=== PATIENT | female | born 1940 | race Two or more races ===

== ENCOUNTER 2022-03-12 12:03 | Observation (INO) | payer MEDICARE, OTHER ==
[~2022-03-12] VITALS: Ht 157.5 cm; Wt 55.7 kg
[2022-03-12 13:58] LABS: Basophils # (auto) 0 10 ^3/uL (0-0.2); Basophils % (auto) 0.4 % (0.0-2.0); Eosinophils # (auto) 0.1 10 ^3/uL (0-0.8); Eosinophils % (auto) 0.7 % (0.0-7.0); Hematocrit 38.7 % (36.0-46.0); Lymphocytes # (auto) 1.4 10 ^3/uL (0.4-5.4); Lymphocytes % (auto) 19.5 % (10.0-50.0); Mean Corpuscular Hemoglobin 30.3 pg (28.0-32.0); Mean Corpuscular Hgb Conc. 33.5 g/dL (32.0-36.0); Mean Corpuscular Volume 90.4 fL (80.0-100.0); Monocytes # (auto) 0.5 10 ^3/uL (0-1.3); Monocytes % (auto) 7.7 % (0.0-12.0); Neutrophils % (auto) 71.7 % (37.0-80.0); Red Blood Cells 4.28 10^6/uL (4.0-5.20); Red Cell Distribution Width 14.2 % (11.8-14.3)
[2022-03-12 14:16] LABS: Albumin 4.8 g/dL (3.4-5.0); BUN/Creatinine Ratio 27.4; Calcium 9.1 mg/dL (8.5-10.1); Potassium 3.7 mmol/L (3.5-5.1)
[2022-03-12 14:30] LABS: Bilirubin, Total 1.1 mg/dL (0.2-1.0)
[2022-03-12] MEDS ORDERED: MECL12.514 PO (14:52)
[2022-03-12] MEDS ORDERED: ASPirin 81 mg TAB PO ONE (15:15)
[2022-03-12] MEDS ORDERED: DOCUSATE SOD 100 MG CAP PO PRN (17:00)
[2022-03-12] MEDS ORDERED: ONDANSETRON HCL 4 MG/2 ML VIAL IV PRN (17:00)
[2022-03-12] MEDS ORDERED: MORPHINE SULFATE INJ 2 MG/ml SYRG IV PRN (17:00)
[2022-03-12] MEDS ORDERED: HYDROcodone-ACET 5/325MG TAB PO PRN (17:00)
[2022-03-12] MEDS: SODIUM CHLORIDE 0.9% 1,000 ML IV SCH (17:14)
[2022-03-12] MEDS ORDERED: ATORVASTATIN 20 MG TAB PO SCH (22:00)
[2022-03-12 22:41] LABS: Cholesterol 167 mg/dL (< 200); HDL Cholesterol 71 mg/dL (40-59); LDL Cholesterol 98 mg/dL (< 100); Triglycerides 78 mg/dL (< 150)
[2022-03-13 05:14] LABS: Basophils # (auto) 0 10 ^3/uL (0-0.2); Basophils % (auto) 0.4 % (0.0-2.0); Eosinophils # (auto) 0.1 10 ^3/uL (0-0.8); Hematocrit 33.9 % (36.0-46.0); Hemoglobin 11.7 g/dL (12.2-16.2); Lymphocytes # (auto) 1.2 10 ^3/uL (0.4-5.4); Lymphocytes % (auto) 20.5 % (10.0-50.0); Mean Corpuscular Hgb Conc. 34.4 g/dL (32.0-36.0); Mean Corpuscular Volume 90.1 fL (80.0-100.0); Monocytes # (auto) 0.7 10 ^3/uL (0-1.3); Monocytes % (auto) 11.4 % (0.0-12.0); Neutrophils # (auto) 3.9 10 ^3/uL (1.6-8.6); Neutrophils % (auto) 65.7 % (37.0-80.0); Red Blood Cells 3.76 10^6/uL (4.0-5.20); Red Cell Distribution Width 14.2 % (11.8-14.3)
[2022-03-13 05:34] LABS: Albumin 3.8 g/dL (3.4-5.0); Calcium 8.6 mg/dL (8.5-10.1); Potassium 4.2 mmol/L (3.5-5.1)
[2022-03-13 05:36] LABS: BUN/Creatinine Ratio 26.7
[2022-03-13 05:39] LABS: Bilirubin, Total 0.9 mg/dL (0.2-1.0); Total Protein 6.5 g/dL (6.4-8.2)
[2022-03-13 07:55] VITALS: BP 152/62
[2022-03-13] MEDS ORDERED: SPIR25TA8 PO (09:11)
[2022-03-13] MEDS ORDERED: ROSU10TA16 PO (09:11)
[2022-03-13] MEDS ORDERED: LOSA-39 PO (09:11)
[2022-03-13] MEDS ORDERED: LEVO100I PO (09:11)
[2022-03-13] MEDS ORDERED: CLOP75TA70 PO (09:11)
[2022-03-13] MEDS ORDERED: SERT50TA19 PO (09:11)
[2022-03-13] MEDS ORDERED: AML5T PO (09:11)
[2022-03-13] MEDS: SODIUM CHLORIDE 0.9% 1,000 ML IV SCH (09:40)
[2022-03-13] MEDS ORDERED: ASPirin-EC 81 mg tab PO SCH (10:00)
[2022-03-13 11:15] LABS: Urine Amorphous Crystal MOD /hpf (None Seen); Urine Bacteria MOD /hpf (None Seen); Urine Blood TRACE /uL (Negative); Urine Specific Gravity 1.008 (1.001-1.035); Urine WBC 11 /hpf (0 - 5)
[2022-03-13 13:06] VITALS: BP 123/56
[2022-03-13] MEDS ORDERED: CEPH-509 PO (13:50)
[2022-03-13 15:32] VITALS: BP 123/56
== END 2022-03-13 17:15 | disposition home or self-care (01) ==
LOC: ER 12:03 → OVERFLOW 16:47 → WEST WING 03-13 07:53
PROVIDERS: ADMIT Internal Medicine; ATTEND Internal Medicine Geriatric Medicine
DX: I63.9 Cerebral infarction, unspecified (principal); Z20.822 Contact with and (suspected) exposure to COVID-19; N39.0 Urinary tract infection, site not specified; E03.9 Hypothyroidism, unspecified; E78.5 Hyperlipidemia, unspecified; F17.200 Nicotine dependence, unspecified, uncomplicated; I10 Essential (primary) hypertension; Z79.02 Long term (current) use of antithrombotics/antiplatelets; Z79.82 Long term (current) use of aspirin; Z79.899 Other long term (current) drug therapy; Z90.710 Acquired absence of both cervix and uterus; Z86.73 Personal history of transient ischemic attack (TIA), and cerebral infarction without residual deficits
CPT/HCPCS: 36415; 70450; 70551; 80053; 80061; 81001; 82962; 85025; 87426; 93005; 93306; 93886; 95819; 96360; 96361; 97163; 99285; G0378

== ENCOUNTER 2022-12-21 12:22 | Emergency (ER) | payer OTHER ==
[~2022-12-21] VITALS: Ht 157.5 cm; Wt 62.2 kg
[~2022-12-21 12:22] MED LIST: AML5T PO; CEPH-509 PO; CLOP75TA70 PO; LEVO100I PO; LOSA-39 PO; MECL12.514 PO; ROSU10TA16 PO; SERT50TA19 PO; SPIR25TA8 PO
[2022-12-21] MEDS ORDERED: ACETAMINOPHEN 325 MG TAB PO ONE (12:45)
[2022-12-21] MEDS ORDERED: MORPHINE SULFATE INJ 2 MG/ml SYRG IM ONE (12:45)
[2022-12-21] MEDS ORDERED: LIDO5DIS21 TOP (13:50)
[2022-12-21] MEDS ORDERED: cloNIDine HCL 0.1 MG TAB PO ONE (14:30)
[2022-12-21] MEDS ORDERED: HYDROcodone-ACET 5/325MG TAB PO ONE (14:45)
[2022-12-21 15:17] VITALS: BP 189/76
== END 2022-12-21 15:21 | disposition home or self-care (01) ==
LOC: ER 12:22
DX: S39.012A Strain of muscle, fascia and tendon of lower back, initial encounter (principal); E78.5 Hyperlipidemia, unspecified; I10 Essential (primary) hypertension; Z79.899 Other long term (current) drug therapy; Z90.710 Acquired absence of both cervix and uterus; W18.39XA Other fall on same level, initial encounter; Y93.89 Activity, other specified; Y92.89 Other specified places as the place of occurrence of the external cause; Y99.8 Other external cause status
CPT/HCPCS: 72100; 72170; 93005; 96372; 99284; J2270

== ENCOUNTER → 2023-04-01 | Outpatient (CLI) | payer OTHER ==
[~2023-04-01] MED LIST changes: -LOSA-39 PO; +LOSA100T58 PO; -MECL12.514 PO; +MECL1TAB31 PO; +SERT-206 PO; -SERT50TA19 PO
[2023-04-01 08:38] LABS: Basophils # (auto) 0 10 ^3/uL (0-0.2); Basophils % (auto) 0.7 % (0.0-2.0); Eosinophils # (auto) 0.2 10 ^3/uL (0-0.8); Eosinophils % (auto) 3.1 % (0.0-7.0); Hematocrit 36.2 % (36.0-46.0); Hemoglobin 12.1 g/dL (12.2-16.2); Lymphocytes # (auto) 1.4 10 ^3/uL (0.4-5.4); Lymphocytes % (auto) 25.8 % (10.0-50.0); Mean Corpuscular Hgb Conc. 33.3 g/dL (32.0-36.0); Mean Corpuscular Volume 90.1 fL (80.0-100.0); Monocytes # (auto) 0.5 10 ^3/uL (0-1.3); Monocytes % (auto) 9.1 % (0.0-12.0); Neutrophils # (auto) 3.3 10 ^3/uL (1.6-8.6); Neutrophils % (auto) 61.3 % (37.0-80.0); Nucleated Red Blood Cells % 0.1 %; Red Blood Cells 4.02 10^6/uL (4.0-5.20); Red Cell Distribution Width 13.9 % (11.8-14.3); White Blood Cell 5.3 10^3/uL (4.4-10.8)
[2023-04-01 08:57] LABS: Urine Bacteria NONE SEEN /hpf (None Seen); Urine Blood 1+ /uL (Negative); Urine Budding Yeast MANY /hpf (None Seen); Urine Clarity CLOUDY (Clear); Urine Color Yellow (Yellow); Urine Protein, UAD TRACE (Negative); Urine Specific Gravity 1.015 (1.001-1.035); Urine Urobilinogen Normal (Negative); Urine WBC 337 /hpf (0 - 5); Urine WBC Clumps PRESENT /hpf (None Seen); Urine pH 6.5 (5.0-8.0)
[2023-04-01 10:18] LABS: BUN/Creatinine Ratio 18.5 (10.0-20.0); Calcium 8.6 mg/dL (8.5-10.1); Potassium 3.4 mmol/L (3.5-5.1)
== END | disposition home or self-care (01) ==
LOC: LAB 08:18
PROVIDERS: ATTEND Student in an Organized Health Care Education/Training Program
DX: I10 Essential (primary) hypertension (principal); E03.8 Other specified hypothyroidism
CPT/HCPCS: 36415; 80048; 81001; 84439; 84443; 85025

== ENCOUNTER 2023-04-17 08:15 | Emergency (ER) | payer OTHER ==
[~2023-04-17] VITALS: Ht 154.9 cm; Wt 54.9 kg
[2023-04-17 09:04] VITALS: BP 154/67; PULSE 63; RESP 16; TEMP 98.3; O2SAT 97
[2023-04-17 09:48] LABS: Basophils # (auto) 0 10 ^3/uL (0-0.2); Basophils % (auto) 0.4 % (0.0-2.0); Eosinophils # (auto) 0.1 10 ^3/uL (0-0.8); Hematocrit 39.2 % (36.0-46.0); Hemoglobin 12.9 g/dL (12.2-16.2); Lymphocytes # (auto) 1.7 10 ^3/uL (0.4-5.4); Lymphocytes % (auto) 23.6 % (10.0-50.0); Mean Corpuscular Hemoglobin 29.9 pg (28.0-32.0); Mean Corpuscular Hgb Conc. 32.9 g/dL (32.0-36.0); Mean Corpuscular Volume 91.1 fL (80.0-100.0); Monocytes # (auto) 0.7 10 ^3/uL (0-1.3); Monocytes % (auto) 9.6 % (0.0-12.0); Neutrophils # (auto) 4.7 10 ^3/uL (1.6-8.6); Neutrophils % (auto) 64.4 % (37.0-80.0); Nucleated Red Blood Cells % 0.2 %; Red Cell Distribution Width 14.5 % (11.8-14.3); White Blood Cell 7.4 10^3/uL (4.4-10.8)
[2023-04-17 10:05] LABS: Urine Bacteria NONE SEEN /hpf (None Seen); Urine Blood Negative /uL (Negative); Urine Clarity Clear (Clear); Urine Color Yellow (Yellow); Urine Protein, UAD Negative (Negative); Urine Specific Gravity 1.011 (1.001-1.035); Urine Urobilinogen Normal (Negative); Urine WBC 5 /hpf (0 - 5); Urine pH 6.5 (5.0-8.0)
[2023-04-17 10:23] LABS: Chloride 106 mmol/L (98-107); Potassium 3.7 mmol/L (3.5-5.1); Sodium 139 mmol/L (136-145)
[2023-04-17 10:24] LABS: Anion Gap 8.2 (5-15); Calcium 9.4 mg/dL (8.5-10.1); Carbon Dioxide 24.8 mmol/L (20-30)
[2023-04-17 10:29] LABS: BUN/Creatinine Ratio 23.2 (10.0-20.0); Blood Urea Nitrogen 16 mg/dL (9-23); Glucose 90 mg/dL (74-106)
[2023-04-17] MEDS ORDERED: cefTRIAXone SOD 1,000 MG VL IM ONE (10:45)
[2023-04-17] MEDS ORDERED: CIPR-173 PO (10:47)
== END 2023-04-17 11:09 | disposition home or self-care (01) ==
LOC: ER 08:15
DX: N39.0 Urinary tract infection, site not specified (principal); E78.5 Hyperlipidemia, unspecified; I10 Essential (primary) hypertension; Z90.710 Acquired absence of both cervix and uterus
CPT/HCPCS: 36415; 80048; 81001; 85025; 87086; 96372; 99283; J0696

== ENCOUNTER 2024-05-10 15:17 | Emergency (ER) | payer MEDICAID, OTHER ==
[~2024-05-10] VITALS: Ht 157.5 cm; Wt 54.9 kg
[~2024-05-10 15:17] MED LIST changes: +CIPR-173 PO; +LOSA-535 PO; -LOSA100T58 PO; +MECL12.586 PO; -MECL1TAB31 PO
[2024-05-10 16:32] LABS: Urine Bacteria FEW /hpf (None Seen); Urine Blood 1+ /uL (Negative); Urine Clarity Turbid (Clear); Urine Color Yellow (Yellow); Urine Hyaline Cast FEW /lpf (0 - 2); Urine Protein, UAD TRACE (Negative); Urine Specific Gravity 1.017 (1.001-1.035); Urine Urobilinogen Normal (Negative); Urine WBC 95 /hpf (0 - 5)
[2024-05-10] MEDS ORDERED: NITR-87 PO (16:44)
[2024-05-10 17:07] VITALS: BP 148/60; PULSE 69; RESP 17; TEMP 98.4; O2SAT 96
== END 2024-05-10 17:10 | disposition home or self-care (01) ==
LOC: EDBD → ER 15:17
DX: M54.16 Radiculopathy, lumbar region (principal); N39.0 Urinary tract infection, site not specified; M25.562 Pain in left knee; M25.561 Pain in right knee; E78.5 Hyperlipidemia, unspecified; I10 Essential (primary) hypertension; Z90.710 Acquired absence of both cervix and uterus; Z79.899 Other long term (current) drug therapy
CPT/HCPCS: 81001

== ENCOUNTER 2024-05-12 10:42 | Emergency (ER) | payer MEDICAID ==
[~2024-05-12] VITALS: Ht 157.5 cm; Wt 53.0 kg
[~2024-05-12 10:42] MED LIST changes: +NITR-87 PO
[2024-05-12 11:06] VITALS: BP 145/76; PULSE 88; RESP 16; O2SAT 98
[2024-05-12] MEDS ORDERED: ACET-1080 PO (12:56)
== END 2024-05-12 12:54 | disposition home or self-care (01) ==
LOC: EDBD 10:42 → ER 10:42
DX: M17.12 Unilateral primary osteoarthritis, left knee (principal); E78.5 Hyperlipidemia, unspecified; I10 Essential (primary) hypertension; Z90.710 Acquired absence of both cervix and uterus; Z88.6 Allergy status to analgesic agent
CPT/HCPCS: 73562